=== PATIENT | female | born 1975 | race Caucasian/White ===

== ENCOUNTER → 2024-05-09 14:48 | Outpatient (CLI) | payer BC, SELFPAY ==
--- NOTE | 2024-05-09 14:50 | DI.MG.S_ITS ---
BILATERAL DIGITAL SCREENING MAMMOGRAM 3D/2D WITH CAD: 05/09/2024 CLINICAL: Routine screening. Comparison is made to exams dated: 03/08/2022 mammogram, 02/11/2021 mammogram, and 04/27/2023 mammogram - outside facility. The breasts are heterogeneously dense, which may obscure small masses (category c / 51-75% glandular tissue). Current study was also evaluated with a Computer Aided Detection (CAD) system. There is a benign mass in the right breast. There also is a biopsy clip in the right breast. No significant masses, calcifications, or other findings are seen in either breast. There has been no significant interval change. IMPRESSION: BENIGN There is no mammographic evidence of malignancy. A 1 year screening mammogram is recommended. Based on the Tyrer Cuzick model (a risk assessment model) the patient's lifetime risk is 13.8% and her 10 year risk is 2.7%. According to the ACR, ACS, and NCCN guidelines, an annual breast MRI exam along with mammogram is recommended if the patient's lifetime risk is 20% or greater. This exam was interpreted at Station ID: [id number]. NOTE: For mammograms, a report in lay terms will be sent to the patient. Approximately 15% of breast malignancies will not be visualized mammographically. In the management of a palpable breast mass, a negative mammogram must not discourage biopsy of a clinically suspicious lesion. Electronically Signed By: Jean pendleton/elizabeth:05/10/2024 09:42:46 letter sent: Normal Exam ACR BI-RADS Category 2: Benign
== END ==
PROVIDERS: PCP Family Medicine; Referring Provider Family Medicine; Visit Provider Family Medicine
DX: Z12.31 Encounter for screening mammogram for malignant neoplasm of breast (principal); R92.333 Mammographic heterogeneous density, bilateral breasts
CPT/HCPCS: 77063; 77067

== ENCOUNTER 2024-07-24 10:35 | Day surgery (SDC) | payer BC, SELFPAY ==
--- NOTE | 2024-07-24 | PATH_ITS ---
[facility] Accession Number: [id number] No. of containers..01 Tissue . 01 Material submitted: . colon - TRANSVERSE POLYP . 01 Diagnosis: TRANSVERSE COLON POLYP: Hyperplastic polyp. MRV 07/28/2024 1627 Local . 01 Electronically signed: . Terra Naqvi MD, Pathologist NPI- [id number] . 01 Gross description: . TRANSVERSE POLYP: Received in formalin is 1 fragment(s) of ray, soft tissue measuring 0.3 x 0.3 x 0.2 cm submitted entirely in 1 cassette(s) /TWAN 07/26/2024 0056 Local . 01 Pathologist provided ICD-10: D12.3 . 01 CPT . 389265 Specimen Comment: A courtesy copy of this report has been sent to [phone] Performed at: [address] [facility] [id number] MD Tate Benitez MD Phone: [phone]
[2024-07-24 10:53] VITALS: BP 118/71; PULSE 87; RESP 16; TEMP 37.1; O2SAT 99
[2024-07-24] MEDS: LACTATED RINGERS 1,000 ML 42 ML IV (11:08)
--- NOTE | 2024-07-24 11:22 | P.HP_ITS ---
History of Present Illness History of Present Illness Date Patient Seen: 07/24/24 Time Patient Seen: 11:22 Chief complaint: [facility] [place] Narrative: Asim is a 48-year-old woman here for her first screening colonoscopy. No known family history of colon cancer. [facility] Medical History (Updated 07/24/24 @ 11:22 by Dave Cortés MD) Exercise-induced asthma Fractures (~1991) Foot pain Ankle pain (~2020) Chicken pox Human papilloma virus Heavy menstrual period Abnormal Pap smear of cervix Surgical History (Updated 04/22/24 @ 20:33 by Alyse Olivares) Anesthesia History of sinus surgery (~2004) History of foot surgery (~06/2022) History of removal of skin mole History of colposcopy Family History (Updated 04/22/24 @ 20:36 by Alyse Olivares) Father Cancer Sister Thyroid cancer Grandfather Stroke Grandmother Cancer Social History Smoking Status: Never smoker Meds Home Medications and Allergies Allergies Allergy/AdvReac Type Severity Reaction Status Date / Time codeine Allergy Mild Verified 07/24/24 10:53 Exam Vital Signs (past 8 hours): - 07/24/24 10:53 Temperature 98.8 F Pulse Rate 87 Respiratory Rate 16 Blood Pressure 118/71 Pulse Oximetry 99 Oxygen Delivery Method Room Air Oxygen Delivery Method Room Air Const General: healthy appearing Assessment & Plan Assessment and plan (1) Colon cancer screening: Status: Acute Plan Colonoscopy Time-Based Coding :: [TOTAL MINUTES] spent with patient and on the chart (including review of chart, obtaining history, exam, reviewing outside data, placing orders, documenting exam and treatment plan, and counseling patient) on [DATE]. PROFEE Reimbursement Consultant Document charge(s): No
--- NOTE | 2024-07-24 11:51 | PM.OP.COLON ---
Operative Date/Time/Diagnoses Date of procedure: 07/24/24 Time of procedure: 11:51 Pre-op diagnosis: Colon cancer screening Post-op diagnosis: same Procedure & Clinicians Study performed: Colonoscopy Same procedure as scheduled: Yes Surgeon: Dave Cortés Procedure Notes Procedure in detail: Surgeon: Dave Cortés MD Anesthesia: Natalie Kelly CRNA Procedure: The patient was brought to the endoscopy suite, placed in left lateral decubitus position. The patient was connected to monitoring devices. A time-out was performed. Sedation was administered. Once the patient was adequately sedated, a digital rectal exam was performed and was normal. The scope was then inserted and advanced to the cecum where the appendiceal orifice was identified and photographed. The scope was then slowly withdrawn over greater than 6 minutes. The mucosa was thoroughly inspected. There was a 3 mm polyp in the transverse colon removed with a cold snare. The scope was retroflexed in the rectum. No other abnormalities were found. The scope was straightened and removed. The patient was awakened and brought to recovery. Scope withdrawal time: 9 minutes Sedation time: 17 minutes EBL: 3 mL Findings: Small polyp in the transverse colon Post-procedure Disposition: PACU
[2024-07-24 11:52] VITALS: BP 92/54; PULSE 82; RESP 19; TEMP 36.1; O2SAT 97
[2024-07-24 11:57] VITALS: BP 91/49; PULSE 82; RESP 17; O2SAT 97
[2024-07-24 12:02] VITALS: BP 103/61; PULSE 14; RESP 77; O2SAT 98
[2024-07-24 12:05] VITALS: BP 109/64; PULSE 76; RESP 13; O2SAT 98
[2024-07-24 12:10] VITALS: BP 110/66; PULSE 75; RESP 18; O2SAT 97
== END 2024-07-24 12:32 | disposition home or self-care (01) ==
PROVIDERS: PCP Family Medicine; Referring Provider Surgery; Visit Provider Surgery
PROC: 0DJD8ZZ Inspection of Lower Intestinal Tract, Via Natural or Artificial Opening Endoscopic (ICD-10-PCS; CPT 45378; principal; 2024-07-24 11:45)
DX: Z12.11 Encounter for screening for malignant neoplasm of colon (principal); K63.5 Polyp of colon
CPT/HCPCS: 45385; J2704

== ENCOUNTER → 2024-09-24 10:34 | Outpatient (CLI) | payer BC, SELFPAY ==
[2024-09-24 11:15] LABS: Add Manual Diff / Slide Review NO; Basophils Absolute Auto 0 /uL (0-100); Basophils Percent Auto 0.6 % (0-2); Eosinophils Absolute Auto 0 /uL (0-450); Eosinophils Percent Auto 0.7 % (2-4); Hematocrit 42.1 % (36-46); Hemoglobin 14.6 g/dL (12.0-16.0); Lymphocytes Absolute Auto 1300 /uL (1100-4500); Mean Corpuscular HGB Conc 34.7 % (30-36); Mean Corpuscular Hemoglobin 31.9 PG (26-34); Mean Corpuscular Volume 91.9 fL (80-100); Monocytes Absolute Auto 300 /uL (0-900); Monocytes Percent Auto 4.9 % (3-14); Neutrophils Absolute Auto 4300 /uL (1500-7000); Neutrophils Percent Auto 71.8 % (50-75); Platelet Count 164 X10^3/uL (150-400); Red Blood Cell Count 4.58 X10^6/uL (4.0-5.2); Red Cell Distribution Width 12.1 % (11.6-14.8)
[2024-09-24 11:43] LABS: Alanine Aminotransferase 18 IU/L (<35); Albumin 4.6 g/dL (3.5-5.0); Albumin Globulin Ratio 2.2 (1.0-2.8); Alkaline Phosphatase 44 U/L (38-126); Aspartate Aminotransferase 22 IU/L (14-36); BUN Creatinine Ratio 9.7 (6-22); Bilirubin Total 1.3 mg/dL (0.2-1.3); Blood Urea Nitrogen 7 mg/dL (7-17); Calcium 9.6 mg/dL (8.4-10.2); Carbon Dioxide 25 mmol/L (22-32); Chloride 106 mmol/L (98-107); Cholesterol 178 mg/dL (140-199); Estimated Glomerular Filt Rate > 60 mL/min (>60); Globulin 2.1 g/dL (1.7-4.1); Glucose 89 mg/dL (70-99); HDL Cholesterol 66 mg/dL (40-60); HEMOLYSIS < 15 (0-50); LDL Cholesterol Calculated 100 mg/dL (<100); Potassium 4.1 mmol/L (3.4-5.1); Sodium 139 mmol/L (137-145); Total Protein 6.7 g/dL (6.3-8.2); Triglycerides 58 mg/dL (35-150)
== END ==
PROVIDERS: PCP Family Medicine; Referring Provider Family Medicine; Visit Provider Family Medicine
DX: Z00.00 Encounter for general adult medical examination without abnormal findings (principal); E78.5 Hyperlipidemia, unspecified
CPT/HCPCS: 36415; 80053; 80061; 85025